=== PATIENT | female | born 1975 | race Caucasian/White ===

== ENCOUNTER 2016-07-11 09:57 | Emergency (ER) | payer OTHER ==
[2016-07-11 10:35] LABS: BASOPHIL 0.4 % (0-2); EOSINOPHIL 2.8 % (0-5); HCT 43.5 % (37.0-47.0); HGB 13.9 g/dl (12.5-16.0); LYMPHOCYTE 37.6 % (15-48); MCH 26.6 pg (25.0-31.0); MCV 83.3 fL (78.0-100.0); MONOCYTE 6.9 % (0-12); MPV 9.7 fL (6.0-9.5); NEUTROPHIL 52.3 % (41-80); PLT 227 K/uL (150-400); RBC 5.22 M/uL (4.20-5.40); WBC 7.2 K/uL (4.0-10.5)
[2016-07-11 10:41] LABS: PROTHROMBIN TIME 12.8 SECONDS (11.7-14.0); PTT 25.4 SECONDS (23.2-31.4)
[2016-07-11 10:42] LABS: D-DIMER < 0.27 ug/mLFEU (0.00-0.41)
[2016-07-11 10:48] LABS: CKMB 1.39 ng/mL (0.97-4.94); PRO-BNP 26 pg/mL (0-125); TROPONIN T < 0.010 ng/mL
[2016-07-11 10:49] LABS: ALBUMIN 4.5 g/dL (3.5-5.0); BILIRUBIN - TOTAL 0.2 mg/dL (0.1-1.0); CREATININE 0.6 mg/dL (0.5-1.0); GLOBULIN (CALCULATION) 3.1 g/dL (2.2-4.2); POTASSIUM 3.7 mmol/L (3.5-5.1); TOTAL PROTEIN 7.6 g/dL (6.4-8.3)
[2016-07-11 10:50] LABS: BILIRUBIN NEGATIVE (NEGATIVE); BLOOD NEGATIVE Ery/uL (NEGATIVE); CLARITY CLEAR (CLEAR); COLOR YELLOW (YELLOW); GLUCOSE (U) NORMAL (NORMAL); KETONE (U) NEGATIVE (NEGATIVE); LEUKOCYTES 3+ Leu/uL (NEGATIVE); NITRITE NEGATIVE (NEGATIVE); PROTEIN NEGATIVE (NEGATIVE); SPECIFIC GRAVITY 1.025 (1.001-1.030); UROBILINOGEN 0.2 mg/dL (0.2-1.0)
[2016-07-11 11:02] LABS: BACTERIA 2+; URINARY RBC RARE
== END 2016-07-11 11:29 | disposition home or self-care (01) ==
LOC: FER 09:57
PROVIDERS: Emergency Medicine
DX: R07.89 Other chest pain (principal); R06.02 Shortness of breath; I50.9 Heart failure, unspecified; I25.2 Old myocardial infarction; Z82.49 Family history of ischemic heart disease and other diseases of the circulatory system; Z88.2 Allergy status to sulfonamides; Z79.899 Other long term (current) drug therapy; Z98.61 Coronary angioplasty status
CPT/HCPCS: 36415; 71020; 80053; 81001; 82550; 82553; 83880; 84484; 85025; 85379; 85610; 85730; 93005